=== PATIENT | male | born 2000 | race Caucasian/White ===

== ENCOUNTER 2023-01-25 19:41 | Emergency (ER) | payer SELFPAY ==
[~2023-01-25] VITALS: Ht 188 cm; Wt 104.3 kg
[2023-01-25] MEDS ORDERED: ALBU90OI INH (19:53)
[2023-01-25 20:45] LABS: Influenza A, PCR NEGATIVE (NEGATIVE); Influenza B, PCR NEGATIVE (NEGATIVE); Resp Syncytial Virus, PCR NEGATIVE (NEGATIVE); SARS-Cov-2 (COVID-19) PCR, MMC NEGATIVE (NEGATIVE)
[2023-01-25] MEDS ORDERED: ALBU2.5V5 INH (22:26)
[2023-01-25 23:34] VITALS: BP 123/58
== END 2023-01-26 00:06 | disposition home or self-care (01) ==
LOC: ER 19:41
PROVIDERS: Emergency Medicine
DX: J45.909 Unspecified asthma, uncomplicated (principal); J98.2 Interstitial emphysema; Z20.822 Contact with and (suspected) exposure to COVID-19
CPT/HCPCS: 0241U; 71046; 71250; 94644; 94645; 94664; 96365; 99285-25; A9270; J7512